=== PATIENT | male | born 1955 | race African-American/Black ===

== ENCOUNTER 2016-09-22 09:24 | Day surgery (SDC) | payer OTHER ==
[2016-09-21 15:33] VITALS: BMI 28.8
--- NOTE | 2016-09-22 09:03 | HP ---
History & Physical Update - History History: No Change - Physical Physical: No Change - Assessment Assessment: No Change - Plan Plan: No Change (left inguinoscrotal hernia, incarcerated. Plan : Repair with mesh.)
[~2016-09-22 09:24] MED LIST: BUPIVACAINE HCL/PF 0.5% (5MG/ML) 10 ML VIAL IJ ONE
[2016-09-22] MEDS ORDERED: PROPOFOL 20 ML ONE (09:32)
[2016-09-22] MEDS ORDERED: LIDOCAINE HCL 2% (20ML MULTI-DOSE VIAL) NR ONE (09:32)
[2016-09-22] MEDS ORDERED: ROCURONIUM BROMIDE 50 MG/5 ML VIAL ONE (09:32)
[2016-09-22] MEDS ORDERED: ceFAZolin SODIUM 1 GM VIAL IVPB ONE (09:55)
[2016-09-22] MEDS ORDERED: ceFAZolin SODIUM 1 GM VIAL ONE (09:56)
[2016-09-22] MEDS ORDERED: DEXAMETHASONE SOD PHOSPHATE 4 MG/1 ML VIAL ONE (09:59)
[2016-09-22] MEDS ORDERED: PROMETHAZINE HCL 25 MG/1 ML VIAL IVPUSH PRN (12:02)
[2016-09-22] MEDS ORDERED: oxyCODONE HCL 5 MG TABLET PO PRN (12:02)
--- NOTE | 2016-09-22 12:14 | OP ---
Operative Note - Note: Operative Date: 09/22/16 Pre-Operative Diagnosis: Incarcerated left inguinoscrotal hernia. Operation: Repair of incarcerated left inguinoscrotal hernia with plug and mesh. Findings: Large inguinoscrotal hernia , with a very wide sac , extending down into the scrotum. A wide defect requiring two plugs and a mesh. Implants: Two prolene plugs and a prolene mesh, large size. Post-Operative Diagnosis: Same as Pre-op Surgeon: Cherry Acharya Anesthesia: General Specimens Removed: Hernial sac and lipoma of cord. Estimated Blood Loss (mls): 15 Operative Report Dictated: Yes
[2016-09-22] MEDS ORDERED: LACTATED RINGERS SOLUTION 1,000 ML IV SCH (12:15)
[2016-09-22 13:23] VITALS: TEMP 97.6
[2016-09-22 14:30] VITALS: BP 130/79; PULSE 92
--- NOTE | 2016-09-23 11:38 | OP ---
DATE OF OPERATION: 09/22/2016 PREOPERATIVE DIAGNOSIS: Large incarcerated left inguinal scrotal hernia. POSTOPERATIVE DIAGNOSIS: Large incarcerated left inguinal scrotal hernia. OPERATIVE PROCEDURE: Repair of incarcerated left inguinal scrotal hernia with plug and mesh. SURGEON: Kendall Acharya MD ANESTHESIA: General anesthesia. OPERATIVE DESCRIPTION: This 61-year-old man had a large progressive inguinoscrotal hernia for the past many years. The patient was brought in for repair of the hernia. He had pain in his inguinoscrotal region with the hernia descending down and bringing the scrotum down toward the thigh. Consent was obtained. Risks, benefits and complications had been discussed with the patient. He was given a gram of Ancef. The left inguinoscrotal region and the lower abdomen were painted and draped. A timeout was called. An incision was made obliquely in the left groin which was deepened to incise the skin and subcutaneous tissue, Jerald fascia, and the external oblique aponeurosis. There was a large sac going down all the way down to the scrotum. This was carefully from the fibroadipose tissue as well as the cord structures all the way down to the abdominal wall. It was very wide and contained small bowel which was returned into the abdominal cavity. The sac was then suture ligated at the neck with 3-0 Vicryl sutures in a running fashion and then with a tie above that. The excess sac beyond the sutures was then excised and sent to Pathology. There was a large lipoma, as well, which was excised and sent to Pathology. The cord structures were intact. The patient had both direct and indirect hernias. Two plugs were then used to close the defect. One through the internal ring which was placed above the internal ring and anchored with 2-0 Prolene sutures, going through the internal oblique and transversus abdominis muscle, brought through the internal ring, toward the outward leaf of the mesh, and then with the sutures reintroduced through the ring, and brought out through the abdominal wall. Then, this was anchored using the Prolene behind the abdominal wall. Another large plug was inserted through the direct defect and again sutured separately with 2 sutures behind the abdominal wall and brought out through the internal oblique muscle, one on the medial aspect and one superior to the inguinal canal. A large mesh was then placed to interpose the defect. This was anchored at the level of the pubic tubercle with 2-0 Prolene sutures. The inferior leaf of the mesh was placed over the shelving edge of the inguinal ligament and anchored with a VersaTack tacking device. The superior leaf of the mesh was brought over the internal oblique muscle and the 2-0 Prolene suture holding the plug behind the internal oblique muscle was brought through the mesh and the suture knot was fastened. Thus, the internal oblique and transversus abdominis muscle and fascia were sandwiched between the plug in the deeper portion and the mesh anterior to it. Laterally, the 2 leaves of the mesh were brought around the cord structures, apposed toward each other and anchored with 2-0 Vicryl sutures. The defect was adequately performed. The wound was irrigated. Hemostasis was satisfactory. The external oblique aponeurosis was approximated with continuous 3-0 Vicryl sutures in a running fashion and the external ring was reformed. Marcaine 0.5% was injected into the wound and around the cord structures. Jerald fascia was approximated with interrupted buried 3-0 Vicryl sutures. The subcutaneous fat was also approximated with buried interrupted 3-0 Vicryl sutures and skin was approximated with continuous 4-0 Monocryl sutures in a running subcuticular fashion. Sponge count and instrument count was correct. Estimated blood loss was between 15 to 20 mL. The patient tolerated the procedure well, was extubated, and sent to the recovery room in satisfactory and stable condition. cc: Leroy Connors M.D. [id number]
--- NOTE | 2016-09-27 11:19 | PATH ---
Surgical Pathology Report Patient Name: GRABIEL CLINTON [facility]. Rec. #: [id number] /Age/Gender: 1955 (Age: 61) / M Account: [id number] Location: [facility] SURGICAL Taken: 09/22/2016 Received: 09/22/2016 Reported: 09/25/2016 Physicians: Kendall Acharya M.D. Specimen(s) Received HERNIA SAC Clinical History Incarcerated left inguinal hernia Final Diagnosis HERNIA SAC, LEFT INGUINAL HERNIA REPAIR: BENIGN, PARTIALLY MESOTHELIUM LINED, FIBROMEMBRANOUS TISSUE WITH FOCAL HEMORRHAGE AND VASCULAR CONGESTION, CONSISTENT WITH HERNIA SAC. Electronically Signed Mario Gilmore M.D. Gross Description Received in formalin labeled "hernia sac" is an 8.5 x 6.0 x 2.5 cm portion of plaza-brown, focally hemorrhagic fibromembranous tissue and attached fat, consistent with a hernia sac. No masses are identified. Armature Winder Repairer sections are submitted in one cassette. 09/22/201609/22/2016
== END 2016-09-22 15:15 | disposition home or self-care (01) ==
LOC: JASU-SURG 09:24 → EDBD 09:30 → JASU-SURG 15:15
PROVIDERS: ATTEND Specialist
PROC: 0YU60JZ Supplement Left Inguinal Region with Synthetic Substitute, Open Approach (ICD-10-PCS; principal; 2016-09-22 09:30)
DX: K40.30 Unilateral inguinal hernia, with obstruction, without gangrene, not specified as recurrent (principal)
CPT/HCPCS: 88302-TC; 94760